=== PATIENT | female | born 1995 | race Caucasian/White ===

== ENCOUNTER 2018-12-29 12:16 | Outpatient (CLI) | payer OTHER ==
[~2018-12-29] VITALS: Ht 160 cm; Wt 68.7 kg
[~2018-12-29 12:16] MED LIST: ACYC800T PO; DESV100T PO
[2018-12-29 12:41] VITALS: BP 111/65; PULSE 85; RESP 18; Ht 160 cm; Wt 68.7 kg
[2018-12-29] MEDS ORDERED: ACETAMINOPHEN 500 MG TAB PO STA (13:34)
== END 2018-12-29 16:30 | disposition home or self-care (01) ==
LOC: OBT 12:16 → L-D 12:17 → OBT 16:30
PROVIDERS: ATTEND Obstetrics & Gynecology
DX: O26.893 Other specified pregnancy related conditions, third trimester (principal); Z3A.28 28 weeks gestation of pregnancy; R10.33 Periumbilical pain
CPT/HCPCS: 76705; 80307; 81003; 85025; G0463